=== PATIENT | female | born 1945 | race Caucasian/White ===

== ENCOUNTER 2017-09-08 12:16 | Emergency (ER) | payer OTHER, MEDICARE ==
[~2017-09-08] VITALS: Ht 162.6 cm; Wt 66.7 kg
[~2017-09-08 12:16] MED LIST: ACETAMINOPHEN500 M1 PO; ATORVASTATIN CA20 MG PO; AZITHROMYCIN250 MG PO; ENBREL50 MG/ML IM; FLUOCINOLONE AC AD; MELOXICAM15 MG PO; OMEPRAZOLE20 MG PO; PERCOCET 325 MG1 TAB PO; PREDNISONE5 MG PO
--- NOTE | 2017-09-08 14:28 | ED GENERAL ADULT ---
History of Present Illness General Chief Complaint: General Adult Stated Complaint: C/O HIGH BP PER PT FEELS SHAKY Source: patient Exam Limitations: no limitations Vital Signs & Intake/Output Vital Signs & Intake/Output Vital Signs Date Time Temp Pulse Resp B/P B/P Pulse O2 O2 Flow FiO2 Mean Ox Delivery Rate 09/08 1721 99.3 88 18 148/71 97 Room Air 09/08 1420 76 18 144/77 96 Room Air 09/08 1234 98.2 75 18 170/83 98 Room Air Allergies Coded Allergies: amoxicillin (SEVERE RASH 09/08/17) cephalexin (From KEFLEX) (VOMITING, DIARRHEA 09/08/17) hydroxychloroquine (From PLAQUENIL) (RASH 09/08/17) tetracycline (LIPS TINGLED 09/08/17) codeine (GI UPSET 09/08/17) Reconcile Medications Atorvastatin Calcium 20 MG TABLET 1 TAB PO DAILY CHOLESTEROL (Reported) Fluocinonide 0.05 % SOLUTION 1 ENE TOP PRN SCALP-PSORIASIS (Reported) apply to affected area(s) Lisinopril 5 MG TABLET 1 TAB PO DAILY BP (Reported) Meloxicam 15 MG TABLET 1 TAB PO DAILY PAIN/INFLAMMATION (Reported) Metformin HCl (Metformin HCl ER) 500 MG TAB.ER.24H 1 TAB PO DAILY DM ( Reported) Omeprazole 20 MG CAPSULE.DR 1 CAP PO DAILY GI (Reported) Oxycodone HCl/Acetaminophen (Oxycodone-Acetaminophen 5-325) 5 MG-325 MG TABLET 1 TAB PO Q4-6H PRN PAIN (Reported) Prednisone 20 MG TABLET 1 TAB PO BID STEROID (Reported) Triage Note: PT TO ED C/O HIGH BP AND FEELING SHAKY AT HOME. IS NIDDM. CALLED 911 BECAUSE SHE FELT LIGHTHEADED AND SHAKY . FINGERSTICK FOR EMS "WAS OK, SOMEWHERE IN THE 200'S" DECLINED EMS TRANSPORT TO ER. HAS HAD RECENT ELEVATED BP'S "I HAD A DRY SOCKET AND NEEDED A STITCH IN MY GUM" STATES STILL FEELS SHAKY. IS CURRENTLY TAKING PERCOCET (R/T DRY SOCKET PAIN) AND LAST DOSE OF 40 MG PREDNISONE (R/T ALLERGIC REACTION TO AMOX) IS TOMORROW Triage Nurses Notes Reviewed? yes Onset: Gradual Duration: constant Timing: single episode today Injury Environment: home Severity: mild Severity Numbers: 3 HPI: Patient is a 72-year-old female with past medical history rheumatoid arthritis currently on prednisone, diabetes, osteoporosis hypertension hyperlipidemia who presents emergency room with concerns of dizziness 1 day, Patient does state that August 23 She Had Dental Extractions Removed Where She Followed up to an Urgent Care Facility Where She Was Been Taking Amoxicillin and Vicodin Where the Urgent Care Center Were Concerns of Urticaria and Adverse Drug Reaction Patient Received Steroids and Epinephrine and Was Given Prescription of Prednisone and Multiple Back and Was Advised to Discontinue the Medication, Patient Followed up with Her Dentist on September 04 2 Days Later and Noted Persistent Blood Pressure It Was Also Noted the Patient Had an Elevated Blood Pressure on Initial Examination at the Walk-In Center. Patient Again Followed up 2 Days Ago with a Routine Eye Doctor Appointment and Noted Elevated Blood Pressure and Yesterday Patient Followed up with Her Dentist and Noted Persistent Elevated Pressure a reports the numbers were noted to be 180-150/80 Patient has been asymptomatic until today where she has noticed a 4 hour onset prior to arrival of dizziness patient first thought it was her low glucose however initial reading was noted to be 240 patient ate food and lied down and felt persistent dizziness and was advised to present to the emergency room. Patient denies any fever or chills blurred vision and headache chest pain or pain jaw pain nausea vomiting. and which approximately one week ago patient was evaluated at walk-in clinic on September 02 for concerns of adverse drug reaction due to suspecting amoxicillin or Vicodin where she received steroid injection and epinephrine and was administered prednisone prescription and meloxicam, patient had improvement of generalized urticaria however patient followed up with her dentist 2 days later on September 04 due to her dry socket in which patient (Harry Williamson) Past History Travel History Traveled to [place] past 21 day No Medical History Any Pertinent Medical History? see below for history Cardiovascular: hypertension, hyperlipidemia Gastrointestinal: GERD Musculoskeletal: rheumatoid arthritis Endocrine: diabetes Surgical History Surgical History: non-contributory Psychosocial History What is your primary language Eritrean Tobacco Use: Quit >30 days ago ETOH Use: occasional use Illicit Drug Use: denies illicit drug use Family History Hx Contributory? No (Harry Williamson) Review of Systems Review of Systems Constitutional: Reports: no symptoms. EENTM: Reports: no symptoms. Respiratory: Reports: no symptoms. Cardiovascular: Reports: no symptoms. GI: Reports: no symptoms. Genitourinary: Reports: no symptoms. Musculoskeletal: Reports: no symptoms. Skin: Reports: no symptoms. Neurological/Psychological: Reports: no symptoms. Hematologic/Endocrine: Reports: no symptoms. Immunologic/Allergic: Reports: no symptoms. All Other Systems: Reviewed and Negative (Harry Williamson) Physical Exam Physical Exam General Appearance: no apparent distress, alert, comfortable Head: atraumatic Eyes: Bilateral: normal appearance, PERRL, EOMI. Ears, Nose, Throat: normal pharynx, normal ENT inspection, hearing grossly normal Neck: normal inspection, supple Respiratory: normal breath sounds, chest non-tender Cardiovascular: regular rate/rhythm Gastrointestinal: normal bowel sounds, soft, non-tender Extremities: normal inspection, normal capillary refill, normal range of motion, no edema Skin: intact, normal color, warm/dry Core Measures ACS in differential dx? Yes CVA/TIA Diagnosis: No Sepsis Present: No Sepsis Focused Exam Completed? No (Harry Williamson) Progress Differential Diagnoses I considered the following diagnoses in my evaluation of the patient: [ Electrolyte abnormality myocardial infarction anemia hypotension hypertension] Initial ED EKG: normal p-waves, normal QRS complex, normal sinus rhythm, 74 BPM, NSR Repeat EKG: unchanged (Harry Williamson) Plan of Care: Orders Procedure Date/time Status TROPONIN LEVEL 09/08 1900 Complete EKG 09/08 190 Active TROPONIN LEVEL 09/08 1527 Complete COMPREHENSIVE METABOLIC PANEL 09/08 1527 Complete CBC WITHOUT DIFFERENTIAL 09/08 1527 Complete EKG 09/08 1527 Active Laboratory Tests 09/08/17 1907: Troponin I < 0.01 09/08/17 1614: Anion Gap 17 H, Estimated GFR > 60, BUN/Creatinine Ratio 25.0, Glucose 180 H, Calcium 10.3 H, Total Bilirubin 0.7, AST 19, ALT 41, Alkaline Phosphatase 63, Troponin I < 0.01, Total Protein 8.2, Albumin 4.8, Globulin 3.4, Albumin/ Globulin Ratio 1.4, CBC w Diff NO MAN DIFF REQ, RBC 4.72, MCV 97.4, MCH 31.9 H, RDW 12.9, MPV 7.7, Gran % 82.9 H, Lymphocytes % 11.2 L, Monocytes % 5.6, Eosinophils % 0, Basophils % 0.3, Absolute Granulocytes 7.9 H, Absolute Lymphocytes 1.1 L, Absolute Monocytes 0.5, Absolute Eosinophils 0, Absolute Basophils 0, PUBS MCHC 32.8 L Patient on initial examination was resting comfortably and denies any dizziness symptoms at rest denies any cardiovascular or respiratory complaints prior to arrival traffic monitor specialist placed patient noted to be normotensive blood work will be established initial EKG was unremarkable patient will receive second set troponin 1804- patient was evaluated and to be resting comfortably normal steady gait and was asymptomatic patient will receive second set troponin first set was reviewed blood work was reviewed with patient noted to be unremarkable 1906- patient resting comfortably at bedside denies any symptoms second troponin currently is pending Second troponin was unremarkable. Patient was strongly advised to follow discharge instructions plan is she will comply Discussed patient with Dr. Giang who agrees \\ (Harry Williamson) (Guillermina MCDUFFIE,Zeyad Harris) Departure Departure Disposition: HOME OR SELF CARE Condition: Stable Clinical Impression Primary Impression: Dizziness Referrals: Gaby MCDUFFIE,Cuco Hilliard (PCP/Family) Bindu MCDUFFIE PHD,Bobby Garrett Additional Instructions: As discussed continue home medications as directed, on Monday please follow up with lump maker Dr. Ruano or follow-up with your family lump maker Please provide your primary care doctor and lump maker with copies of blood work and EKG GIVEN TO YOU in the emergency room if symptoms worsen return to emergency room Departure Forms: Customer Survey General Discharge Information (Harry Williamson) PA/SALES EXPERT HOME THEATER Co-Sign Statement Statement: ED Attending supervision documentation- [X] I saw and evaluated the patient. I have also reviewed all the pertinent lab results and diagnostic results. I agree with the findings and the plan of care as documented in the PA's/SALES EXPERT HOME THEATER's documentation. Patient presents for evaluation of dizziness. Physical examination reveals a nonfocal neurologic examination. [] I have reviewed the ED Record and agree with the PA's/SALES EXP[employer] HOME THEATER's documentation. [] Additions or exceptions (if any) to the PAs/SALES EXPERT HOME THEATER's note and plan are summarized below: [] (Guillermina MCDUFFIE,Zeyad Harris) Critical Care Note Critical Care Note Critical Care Time: non-applicable (Harry Williamson)
[2017-09-08] MEDS ORDERED: PREDNISONE20 M1 PO (16:24)
[2017-09-08] MEDS ORDERED: LISINOPRIL5 M1 PO (16:24)
[2017-09-08] MEDS ORDERED: FLUOCINONIDE60 ML TOP (16:25)
[2017-09-08] MEDS ORDERED: OXYCODONE-ACET1 EACH PO (16:25)
[2017-09-08] MEDS ORDERED: MELOXICAM15 M1 PO (16:26)
[2017-09-08] MEDS ORDERED: ATORVASTATIN CA20 M1 PO (16:26)
[2017-09-08] MEDS ORDERED: METFORMIN HCL500 M4 PO (16:27)
[2017-09-08] MEDS ORDERED: OMEPRAZOLE20 M2 PO (16:27)
[2017-09-08 16:32] LABS: ABSOLUTE BASOPHIL COUNT 0 /CUMM (0.0-0.2); ABSOLUTE EOSINOPHIL COUNT 0 /CUMM (0.0-0.7); ABSOLUTE GRANULOCYTE CT 7.9 /CUMM (1.4-6.5); ABSOLUTE LYMPH COUNT 1.1 /CUMM (1.2-3.4); ABSOLUTE MONOCYTE COUNT 0.5 /CUMM (0.10-0.60); BASOPHIL % 0.3 % (0.0-2.0); EOSINOPHIL % 0 % (0-5); GRANULOCYTE % 82.9 % (42.2-75.2); MEAN CORPUSCULAR HGB 31.9 PG (27.0-31.0); MEAN CORPUSCULAR HGB CONC 32.8 G/DL (33.0-37.0); MEAN CORPUSCULAR VOLUME 97.4 FL (81.0-99.0); MEAN PLATELET VOLUME 7.7 FL (7.4-10.4); PLATELET COUNT 265 /CUMM (130-400); RBC DISTRIBUTION WIDTH 12.9 % (11.5-14.5); RED BLOOD CELL CT 4.72 /CUMM (4.20-5.40); WHITE BLOOD CELL COUNT 9.5 /CUMM (4.8-10.8)
[2017-09-08 19:59] VITALS: BP 142/70
== END 2017-09-08 20:02 ==
LOC: ERH 12:16
PROVIDERS: Physician Assistant
DX: R42 Dizziness and giddiness (principal)
CPT/HCPCS: 93005; 93010